=== PATIENT | female | born 1990 | race American Indian/Alaskan Native ===

== ENCOUNTER 2018-10-10 11:09 | Emergency (ER) | payer SELFPAY ==
[2018-10-10 11:19] VITALS: BP 175/87
--- NOTE | 2018-10-10 11:21 | Emergency Department Report ---
Blank Doc - Documentation Documentation: fall 4-5 feet off ladder not witnessed denies loc no incontin. co back pain came pov needs tdap rx none pmh none to main
[2018-10-10] MEDS ORDERED: NACL 0.9% 1000 ML 1,000 ML IV ONE (11:22)
[2018-10-10] MEDS ORDERED: BOOSTRIX IM ONE (11:24)
[2018-10-10 11:49] LABS: Basophils # (Auto) 0.1 K/mm3 (0.0-0.1); Basophils % (Auto) 1.4 % (0.0-1.8); Eosinophils # (Auto) 0.2 K/mm3 (0.0-0.4); Eosinophils % (Auto) 1.6 % (0.0-4.3); Hematocrit 36.4 % (30.3-42.9); Hemoglobin 12.2 gm/dl (10.1-14.3); Lymphocytes # (Auto) 2.4 K/mm3 (1.2-5.4); Mean Corpuscular HGB Conc 33 % (30-34); Mean Corpuscular Volume 86 fl (79-97); Monocytes # (Auto) 0.7 K/mm3 (0.0-0.8); Monocytes % (Auto) 7.5 % (0.0-7.3); Platelet Count 315 K/mm3 (140-440); Red Blood Count 4.24 M/mm3 (3.65-5.03); Red Cell Distribution Width 12.8 % (13.2-15.2)
[2018-10-10] MEDS ORDERED: ZOFRAN IV ONE (11:53)
[2018-10-10] MEDS ORDERED: SUBLIMAZE IV ONE (11:53)
--- NOTE | 2018-10-10 12:06 | Emergency Department Report ---
HPI - General Chief Complaint: Fall Time Seen by Provider: 10/10/18 11:19 - [facility] HPI: Room 24 The patient is a 28-year-old female presenting with chief complaint of pain after fall. At approximately 10:00 this morning the patient fell approximate 6- 7 feet from a ladder landing on her back. Patient denies loss of consciousness but complains of pain in her neck, left hip and back. Patient also complains of a headache. Patient gets her pain score of 9/10. Location: [See above] Duration: [See above] Quality: Pain Severity: 9/10 Modifying factors: [see above] Context: [see above] Mode of transportation: [not driving] ED Past Medical Hx - Past Medical History Previous Medical History?: No - Surgical History Past Surgical History?: No - Family History Family history: no significant - Social History Smoking Status: Never Smoker Substance Use Type: None - Medications Home Medications: Home Medications Medication Instructions Recorded Confirmed Last Taken Type Cyclobenzaprine [Flexeril] 10 mg PO TID PRN #10 tablet 10/10/18 Unknown Rx HYDROcodone/APAP 5-325 [[place] 1 - 2 each PO Q6HR PRN #10 tablet 10/10/18 Unknown Rx 5/325] Ibuprofen [Motrin 800 MG tab] 800 mg PO Q8HR PRN #20 tablet 10/10/18 Unknown Rx ED Review of Systems ROS: Stated complaint: BACK INJURY Other details as noted in HPI Constitutional: no symptoms reported Eyes: denies: eye pain ENT: denies: throat pain Respiratory: no symptoms reported Cardiovascular: denies: chest pain Endocrine: no symptoms reported Gastrointestinal: abdominal pain Musculoskeletal: back pain, arthralgia Neurological: headache Physical Exam - Physical Exam Vital Signs: Vital Signs 10/10/18 11:17 Temperature 98.2 F Pulse Rate 110 H Respiratory 18 Rate Blood Pressure 175/87 O2 Sat by Pulse 100 Oximetry Physical Exam: GENERAL: The patient is well-developed well-nourished female lying on stretcher with cervical collar in place. Patient does not appear to be in acute distress. [] HEENT: Normocephalic. Atraumatic. Extraocular motions are intact. Patient has moist mucous membranes. NECK: Supple. No cervical tenderness to palpation. Cervical collar in place CHEST/LUNGS: Clear to auscultation. There is no respiratory distress noted. HEART/CARDIOVASCULAR: Regular. There is no tachycardia. There is no gallop rub or murmur. ABDOMEN: Abdomen is soft, with discomfort to palpation in the right upper quadrant and left upper quadrant. Patient has normal bowel sounds. There is no abdominal distention. SKIN: There is no rash. There is no edema. There is no diaphoresis. NEURO: The patient is awake, alert, and oriented. The patient is cooperative. The patient has normal speech MUSCULOSKELETAL: There is tenderness to the cervical, thoracic and lumbar axial spine. There is tenderness to palpation of bilateral shoulders ED Course Vital Signs 10/10/18 11:17 Temperature 98.2 F Pulse Rate 110 H Respiratory 18 Rate Blood Pressure 175/87 O2 Sat by Pulse 100 Oximetry ED Medical Decision Making - Lab Data Result diagrams: 10/10/18 11:35 10/10/18 11:35 - Radiology Data Radiology results: report reviewed (CT head, CT cervical spine, CT abdomen and pelvis, thoracic spine x-ray, lumbar spine x-ray, bilateral shoulder x-ray), image reviewed (CT head, CT cervical spine, CT abdomen and pelvis, thoracic spine x-ray, lumbar spine x-ray) interpreted by me: Thoracic spine x-ray-no acute fracture Lumbar spine x-ray-no acute fracture CT head (read by radiologist) (-negative CT cervical spine (read by radiologist)-negative CT abdomen and pelvis (read by radiologist)-negative - Differential Diagnosis closed head injury, cervical fracture, cervical strain, abdominal contusion Critical care attestation.: If time is entered above; I have spent that time in minutes in the direct care of this critically ill patient, excluding procedure time. ED Disposition Clinical Impression: Closed head injury, Acute cervical myofascial strain, Lumbar strain, Contusion of right shoulder, Contusion of left shoulder Disposition: DC-01 TO HOME OR SELFCARE Is pt being admited?: No Does the pt Need Aspirin: No Condition: Stable Instructions: Muscle Strain (ED) Additional Instructions: Return to the emergency department immediately should you develop worsening symptoms, fever, inability to tolerate food or liquid or any other concerns. Prescriptions: Cyclobenzaprine [Flexeril] 10 mg PO TID PRN #10 tablet PRN Reason: Muscle Spasm Ibuprofen [Motrin 800 MG tab] 800 mg PO Q8HR PRN #20 tablet PRN Reason: Pain, Moderate (4-6) HYDROcodone/APAP 5-325 [[place] 5/325] 1 - 2 each PO Q6HR PRN #10 tablet PRN Reason: Pain Referrals: PRIMARY CARE, [Primary Care Provider] - 3-5 Days VERONICA MARIE MD [Staff Physician] - 3-5 Days (Dr. Marie is an orthopedic surgeon. Please follow up with him for further evaluation) Time of Disposition: 15:07
[2018-10-10 12:12] LABS: Alanine Aminotransferase 9 units/L (7-56); BUN/Creatinine Ratio 20; Blood Urea Nitrogen 12 mg/dL (7-17); Calcium 9.1 mg/dL (8.4-10.2); Hemolysis Index 7
--- NOTE | 2018-10-10 14:13 | Cat Scan Report ---
PROCEDURE: CT HEAD/BRAIN WO CON TECHNIQUE: Computerized tomography of the head was performed without contrast material. CT DOSE LENGTH PRODUCT: 920.5 mGycm HISTORY: pain after fall from ladder COMPARISONS: None . FINDINGS: Brain: Brain density appears normal. No evidence of intracranial hemorrhage. No parenchymal hemorr ren, mass lesions or mass effect are seen. No abnormal extra-axial fluid collects or masses are see n. Ventricles: Ventricles are normal size and are midline. Bone Windows: No evidence of skull fracture. Paranasal sinuses: Visualized portions appear clear.. Mastoid air cells: Clear. IMPRESSION: Negative exam. This document is electronically signed by Maninder Salmeron MD., Oct 10 2018 02:10:33 PM ET
--- NOTE | 2018-10-10 14:15 | Cat Scan Report ---
PROCEDURE: CT CERVICAL SPINE WO CON TECHNIQUE: Computerized tomography of the cervical spine was performed from the skull base to T1 wit hout contrast material. CT DOSE LENGTH PRODUCT: 666.9 mGycm HISTORY: pain after fall from ladder . Pain. COMPARISONS: None . FINDINGS: No fracture or subluxation is visualized. The prevertebral soft tissues appear normal. Posterior [place] ents appear intact. Bone density appears normal. Disc spaces are well preserved. No focal disc hernia tion or spinal stenosis is visualized. Impression: Negative exam. No fracture or subluxation is seen. This document is electronically signed by Maninder Salmeron MD., Oct 10 2018 02:13:37 PM ET
--- NOTE | 2018-10-10 14:24 | Cat Scan Report ---
PROCEDURE: CT scan of the abdomen and pelvis without IV contrast followed by contrast-enhanced CT sca n of the abdomen and pelvis. TECHNIQUE: Computerized axial tomography of the abdomen and pelvis was performed before administerin g IV contrast followed by contrast-enhanced CT scan of the abdomen and pelvis after the IV injection of iodinated nonionic contrast. CT DOSE LENGTH PRODUCT: 5523.5 mGycm HISTORY: pain after fall from ladder . Trauma. COMPARISONS: None . FINDINGS: Lower Lung odon[place]: Minimal basilar atelectasis visualized. Upper Abdomen: The liver, gallbladder, adrenal glands, the pancreas and spleen are unremarkable. No evidence of organ laceration. Kidneys, Ureters and Urinary bladder: No abnormalities are identified. Retroperitoneum: Abdominal aorta appears normal. No retroperitoneal hemorrhage is visualized. Nonspecific subcentimeter lymph nodes are seen in the retroperitoneum. No pathologically enlarged ly mph nodes are identified. Bowel: No focal abnormalities are identified. No evidence of bowel obstruction ascites, abnormal flu id collections or free intraperitoneal gas. Normal-appearing appendix visualized right lower quadrant . Reproductive organs: Uterus and adnexa are unremarkable. Other: No acute bone abnormalities are seen. IMPRESSION: No acute abnormalities are identified. No fractures or origin laceration identified. This document is electronically signed by Maninder Salmeron MD., Oct 10 2018 02:22:30 PM ET
--- NOTE | 2018-10-10 15:02 | XRay Report ---
THORACIC SPINE, 2 VIEWS: HISTORY: back pain. Normal bone mineralization. No evidence for compression deformity, malalignment, or bone lesion. The posterior ribs are intact. The paraspinal soft tissues are within normal limits. IMPRESSION: Thoracic spine within normal limits.
--- NOTE | 2018-10-10 15:03 | XRay Report ---
BILATERAL SHOULDERS, 3 VIEWS History: Pain after fall. Findings: Normal bone mineralization. No acute osseous findings or joint pathology normal soft tissues. Impression: Normal bilateral shoulders.
--- NOTE | 2018-10-10 15:03 | XRay Report ---
LUMBOSACRAL SPINE, 3 VIEWS: History: Back pain Findings: The vertebral bodies, disk spaces and posterior elements are intact. No compression deformity or malalignment. The SI joints are symmetric and unremarkable. Impression: 1. No evidence for acute injury to the lumbar spine.
== END 2018-10-10 15:38 | disposition home or self-care (01) ==
LOC: ED 11:09
DX: S16.1XXA Strain of muscle, fascia and tendon at neck level, initial encounter (principal); S39.012A Strain of muscle, fascia and tendon of lower back, initial encounter; S40.012A Contusion of left shoulder, initial encounter; S40.011A Contusion of right shoulder, initial encounter; S09.90XA Unspecified injury of head, initial encounter; W11.XXXA Fall on and from ladder, initial encounter; Y93.89 Activity, other specified; Y92.89 Other specified places as the place of occurrence of the external cause; Y99.8 Other external cause status
CPT/HCPCS: 36415; 70450; 72072; 72100; 72125; 73030; 74177; 80053; 84703; 85025; 86850; 86900; 86901; 96374; 96375; 99284; J2405; J3010; J7030; Q9967